=== PATIENT | female | born 1980 | race Two or more races ===

== ENCOUNTER 2016-08-22 04:06 | Emergency (ER) | payer BC ==
[~2016-08-22] VITALS: Ht 170.2 cm; Wt 96.0 kg
[2016-08-22] MEDS ORDERED: BACITRACIN ZINC OINT UDPKT TOP ONE (05:45)
[2016-08-22 06:35] VITALS: BP 148/104
== END 2016-08-22 07:12 | disposition home or self-care (01) ==
LOC: ER 05:51
DX: S01.81XA Laceration without foreign body of other part of head, initial encounter (principal); I10 Essential (primary) hypertension; W19.XXXA Unspecified fall, initial encounter; Y93.89 Activity, other specified; Y92.89 Other specified places as the place of occurrence of the external cause; Y99.8 Other external cause status
CPT/HCPCS: 12011; 81025; 99283; X7700; Z7610

== ENCOUNTER 2017-12-10 23:55 | Emergency (ER) | payer BC ==
[~2017-12-10] VITALS: Ht 170.2 cm; Wt 91.0 kg
[2017-12-11 01:59] VITALS: BP 168/126
[2017-12-11] MEDS ORDERED: OXYMETAZOLINE HCL NASAL SPRAY 15ML BOTHNSTRLS SCH (09:00)
== END 2017-12-11 05:26 | disposition home or self-care (01) ==
LOC: ER 12-11 01:48
DX: R04.0 Epistaxis (principal); I10 Essential (primary) hypertension
CPT/HCPCS: 99282

== ENCOUNTER 2021-08-20 17:22 | Inpatient (IN) | payer BC ==
[~2021-08-20] VITALS: Ht 170.2 cm; Wt 88.5 kg
[2021-08-20] MEDS ORDERED: ACETAMINOPHEN 325MG TABLET PO ONE (18:15)
[2021-08-20] MEDS ORDERED: SODIUM CHLORIDE 0.9% 1,000 ML IV ONE ×2 (18:15→22:15)
[2021-08-20 20:32] LABS: HCG SCREEN NEGATIVE
[2021-08-20 20:35] LABS: CHLORIDE 104 mEq/L (98-107)
[2021-08-20 20:43] LABS: ETHANOL BLOOD < 10 mg/dL
[2021-08-20 20:44] LABS: BASOPHILS % 0.2 % (0.0-2.0); HEMATOCRIT. 28.9 % (36.0-48.0); HEMOGLOBIN. 9.1 g/dL (12.0-16.0); LYMPHOCYTES % 16.2 % (20.0-50.0); MEAN CORPUSCULAR HEMOGLOBIN 22.3 pg (28.0-32.0); MEAN CORPUSCULAR VOLUME 70.8 fL (81.0-99.0); MONOCYTES % 7.9 % (2.0-8.0); NEUTROPHILS % 75.7 % (40.0-76.0); PLATELET 426 x1000/uL (130-400); RED BLOOD CELL COUNT 4.08 mill/uL (4.2-5.4); RED CELL DISTRIBUTION WIDTH 18.9 % (11.6-14.6)
[2021-08-20] MEDS ORDERED: ACETAMINOPHEN 325MG TABLET PO NR (21:02)
[2021-08-20 22:58] LABS: CLARITY URINE CLEAR (CLEAR); COLOR URINE YELLOW (YELLOW); KETONES URINE NEGATIVE (NEGATIVE); LEUKOCYTE ESTERASE URINE NEGATIVE (NEGATIVE); NITRITE URINE POSITIVE (NEGATIVE); OCCULT BLOOD URINE 1+ (NEGATIVE); PH URINE 5.5 (4.5-8.0); PROTEIN URINE NEGATIVE (NEGATIVE); SPECIFIC GRAVITY URINE 1.018 (1.005-1.030); UROBILINOGEN URINE 0.2 E.U./dL (0.2-1.0)
[2021-08-20 23:09] LABS: *AMPHETAMINES SCREEN URINE NEGATIVE (NEGATIVE); *BARBITURATES SCREEN URINE NEGATIVE (NEGATIVE); *BENZODIAZEPINES SCREEN URINE NEGATIVE (NEGATIVE); *COCAINE SCREEN URINE NEGATIVE (NEGATIVE); CANNABINOID URINE SCREEN NEGATIVE (NEGATIVE); METHADONE URINE SCREEN NEGATIVE (NEGATIVE); OPIATES URINE SCREEN NEGATIVE (NEGATIVE); PHENCYCLIDINE URINE SCREEN NEGATIVE (NEGATIVE)
[2021-08-20] MEDS ORDERED: SODIUM CHLORIDE 0.9% 1000ML BAG (SEPSIS BOLUS) IV ONE (23:30)
[2021-08-20] MEDS ORDERED: CEFTRIAXONE 1 G PREMIX 50 ML IV ONE (23:30)
[2021-08-21] VITALS (14 sets, daily range): BP systolic 113–139; BP diastolic 67–90
[2021-08-21] MEDS ORDERED: ONDANSETRON HCL 4MG/2ML INJ IV PRN (09:30)
[2021-08-21] MEDS ORDERED: ACETAMINOPHEN 325MG TABLET PO PRN (09:30)
[2021-08-21] MEDS ORDERED: ENOXAPARIN 40MG/0.4ML SYR SUBCUT SCH (10:00)
[2021-08-21] MEDS: SODIUM CHLORIDE 0.9% 1,000 ML IV SCH ×2 (12:09→17:30)
[2021-08-21] MEDS ORDERED: ASPIRIN 81MG TABLET PO SCH (14:00)
[2021-08-21] MEDS ORDERED: GADOTERATE MEGLUMINE 5 MMOL/10 ML VIAL IV ONE (14:14)
[2021-08-21] MEDS: AMLODIPINE 5MG TABLET PO SCH (14:58)
[2021-08-21] MEDS ORDERED: CEFTRIAXONE 2 G PREMIX 50 ML IV SCH (16:15)
[2021-08-21] MEDS ORDERED: VANCOMYCIN 1500MG in DEXTROSE 5% WATER 250ML IV NR (18:30)
[2021-08-21] MEDS ORDERED: DEXT 5% IV SCH (20:00)
[2021-08-21] MEDS ORDERED: ACYCLOVIR IV SCH (20:00)
[2021-08-21] MEDS ORDERED: WATER IV SCH (20:00)
[2021-08-21] MEDS: ACYCLOVIR IV SCH (20:41)
[2021-08-21] MEDS: DEXT 5% IV SCH (20:41)
[2021-08-21] MEDS: WATER IV SCH (20:41)
[2021-08-21] MEDS: CEFTRIAXONE 2 G in DEXTROSE 5% WATER 50 ML IV SCH (20:41)
[2021-08-21] MEDS ORDERED: MORPHINE SULFATE 2 MG/ML CPJ (NOT FOR IM USE) IV PRN (21:00)
[2021-08-21] MEDS ORDERED: DEXAMETHASONE 10 MG/ML VIAL IV SCH (21:00)
[2021-08-21] MEDS ORDERED: DEXAMETHASONE 10 MG/ML VIAL IV NR (21:00)
[2021-08-21 21:42] LABS: T4 FREE 0.91 ng/dL (0.76-1.46)
[2021-08-21 21:44] LABS: CREATINE KINASE 79 IU/L (26-192); CREATINE KINASE MB FRACTION < 1.0 ng/mL (0.5-3.6)
[2021-08-21] MEDS: FAMOTIDINE 20MG/2ML VIAL IV SCH (21:44)
[2021-08-22] VITALS (46 sets, daily range): BP systolic 103–143; BP diastolic 43–106
[2021-08-22 00:25] LABS: CREATINE KINASE 78 IU/L (26-192); CREATINE KINASE MB FRACTION < 1.0 ng/mL (0.5-3.6)
[2021-08-22] MEDS: DEXAMETHASONE 4MG/ML 1ML VIAL IV SCH ×4 (00:50→17:08)
[2021-08-22 01:18] LABS: CLARITY URINE CLEAR (CLEAR); COLOR URINE YELLOW (YELLOW); KETONES URINE 2+ (NEGATIVE); LEUKOCYTE ESTERASE URINE NEGATIVE (NEGATIVE); NITRITE URINE POSITIVE (NEGATIVE); OCCULT BLOOD URINE NEGATIVE (NEGATIVE); PH URINE 6.5 (4.5-8.0); PROTEIN URINE NEGATIVE (NEGATIVE); SPECIFIC GRAVITY URINE 1.019 (1.005-1.030); UROBILINOGEN URINE 0.2 E.U./dL (0.2-1.0)
[2021-08-22] MEDS: VANCOMYCIN 750MG PREMIX 150 ML IV SCH ×3 (01:54→18:09)
[2021-08-22] MEDS ORDERED: VANCOMYCIN 750 MG in DEXT 5% WATER 250 ML IV SCH (02:00)
[2021-08-22] MEDS: WATER IV SCH ×3 (03:33→19:48)
[2021-08-22] MEDS: DEXT 5% IV SCH ×3 (03:33→19:48)
[2021-08-22] MEDS: ACYCLOVIR IV SCH ×3 (03:33→19:48)
[2021-08-22] MEDS: CEFTRIAXONE 2 G in DEXTROSE 5% WATER 50 ML IV SCH ×2 (05:31→17:05)
[2021-08-22] MEDS: SODIUM CHLORIDE 0.9% 1,000 ML IV SCH ×3 (05:31→19:00)
[2021-08-22 06:55] LABS: VITAMIN B12 SERUM 1314 pg/mL (211-911)
[2021-08-22] MEDS: AMLODIPINE 5MG TABLET PO SCH (09:16)
[2021-08-22] MEDS: FAMOTIDINE 20MG/2ML VIAL IV SCH ×2 (09:45→21:56)
[2021-08-22 10:13] LABS: HEMATOCRIT. 28.8 % (36.0-48.0); HEMOGLOBIN. 8.9 g/dL (12.0-16.0); MEAN CORPUSCULAR VOLUME 71.2 fL (81.0-99.0); MEAN PLATELET VOLUME 8.5 fl (7.4-10.4); PLATELET 445 x1000/uL (130-400); RED BLOOD CELL COUNT 4.05 mill/uL (4.2-5.4); RED CELL DISTRIBUTION WIDTH 18.4 % (11.6-14.6)
[2021-08-22 10:18] LABS: CHLORIDE 105 mEq/L (98-107)
[2021-08-22 13:03] LABS: PLATELET ESTIMATE INCREASED
[2021-08-23] VITALS (45 sets, daily range): BP systolic 109–166; BP diastolic 59–129
[2021-08-23] MEDS: DEXAMETHASONE 4MG/ML 1ML VIAL IV SCH ×3 (00:56→12:09)
[2021-08-23] MEDS: SODIUM CHLORIDE 0.9% 1,000 ML IV SCH ×4 (00:56→18:07)
[2021-08-23 01:12] LABS: CHLORIDE 110 mEq/L (98-107)
[2021-08-23] MEDS: VANCOMYCIN 750MG PREMIX 150 ML IV SCH ×2 (02:56→12:09)
[2021-08-23] MEDS: WATER IV SCH ×3 (03:57→19:30)
[2021-08-23] MEDS: ACYCLOVIR IV SCH ×3 (03:57→19:30)
[2021-08-23] MEDS: DEXT 5% IV SCH ×3 (03:57→19:30)
[2021-08-23] MEDS: CEFTRIAXONE 2 G in DEXTROSE 5% WATER 50 ML IV SCH ×2 (06:21→18:09)
[2021-08-23 08:08] LABS: HIV SCREEN 4G Non Reactive (Non Reactive)
[2021-08-23] MEDS: AMLODIPINE 5MG TABLET PO SCH (09:00)
[2021-08-23] MEDS: FAMOTIDINE 20MG/2ML VIAL IV SCH ×2 (09:00→22:04)
[2021-08-23 10:44] LABS: BASOPHILS % 0.2 % (0.0-2.0); HEMATOCRIT. 31.5 % (36.0-48.0); HEMOGLOBIN. 9.7 g/dL (12.0-16.0); LYMPHOCYTES % 9.3 % (20.0-50.0); MEAN CORPUSCULAR HEMOGLOBIN 21.6 pg (28.0-32.0); MEAN CORPUSCULAR VOLUME 70.5 fL (81.0-99.0); MEAN PLATELET VOLUME 8.3 fl (7.4-10.4); MONOCYTES % 5.4 % (2.0-8.0); NEUTROPHILS % 85.1 % (40.0-76.0); PLATELET 485 x1000/uL (130-400); RED BLOOD CELL COUNT 4.48 mill/uL (4.2-5.4); RED CELL DISTRIBUTION WIDTH 18.2 % (11.6-14.6)
[2021-08-23] MEDS ORDERED: NALOXONE HCL 0.4MG/ML VIAL IV PRN (13:30)
[2021-08-23] MEDS ORDERED: METHYLPREDNISOLONE SOD SUCC 125 MG/2 ML VIAL IV SCH (14:45)
[2021-08-23] MEDS ORDERED: GADOTERATE MEGLUMINE 5 MMOL/10 ML VIAL IV ONE (15:47)
[2021-08-23] MEDS: METHYLPREDNISOLONE 500 MG in D5W 100 ML IV SCH (17:52)
[2021-08-23] MEDS: VANCOMYCIN 750 MG in DEXT 5% WATER 250 ML IV SCH (22:04)
[2021-08-24] VITALS (36 sets, daily range): BP systolic 111–147; BP diastolic 42–102
[2021-08-24] MEDS: SODIUM CHLORIDE 0.9% 1,000 ML IV SCH ×2 (02:00→20:42)
[2021-08-24] MEDS: ACYCLOVIR IV SCH ×3 (02:40→21:03)
[2021-08-24] MEDS: DEXT 5% IV SCH ×3 (02:40→21:03)
[2021-08-24] MEDS: WATER IV SCH ×3 (02:40→21:03)
[2021-08-24] MEDS: VANCOMYCIN 750 MG in DEXT 5% WATER 250 ML IV SCH ×3 (05:30→21:04)
[2021-08-24 05:49] LABS: HEMATOCRIT. 29.9 % (36.0-48.0); MEAN CORPUSCULAR HEMOGLOBIN 21.8 pg (28.0-32.0); MEAN CORPUSCULAR VOLUME 72.3 fL (81.0-99.0); RED BLOOD CELL COUNT 4.14 mill/uL (4.2-5.4); RED CELL DISTRIBUTION WIDTH 18.4 % (11.6-14.6)
[2021-08-24 06:04] LABS: CHLORIDE 109 mEq/L (98-107)
[2021-08-24] MEDS: CEFTRIAXONE 2 G in DEXTROSE 5% WATER 50 ML IV SCH ×2 (06:28→17:10)
[2021-08-24 07:31] LABS: PLATELET 413 x1000/uL (130-400)
[2021-08-24 07:36] LABS: PLATELET ESTIMATE SLIGHTLY INCREASED
[2021-08-24] MEDS: METHYLPREDNISOLONE 500 MG in D5W 100 ML IV SCH ×2 (09:00→17:35)
[2021-08-24] MEDS: AMLODIPINE 5MG TABLET PO SCH (09:12)
[2021-08-24] MEDS: FAMOTIDINE 20MG/2ML VIAL IV SCH ×2 (11:17→21:03)
[2021-08-24] MEDS ORDERED: BISACODYL 5MG TABLET PO PRN (15:00)
[2021-08-24] MEDS: DOCUSATE SODIUM 100MG CAPSULE PO SCH (17:10)
[2021-08-24] MEDS ORDERED: LACTULOSE 20G/30ML UDC PO PRN (21:00)
[2021-08-25] VITALS (13 sets, daily range): BP systolic 106–149; BP diastolic 66–97
[2021-08-25] MEDS: WATER IV SCH ×3 (03:06→19:58)
[2021-08-25] MEDS: ACYCLOVIR IV SCH ×3 (03:06→19:58)
[2021-08-25] MEDS: DEXT 5% IV SCH ×3 (03:06→19:58)
[2021-08-25] MEDS: CEFTRIAXONE 2 G in DEXTROSE 5% WATER 50 ML IV SCH ×2 (04:55→18:10)
[2021-08-25] MEDS: VANCOMYCIN 750 MG in DEXT 5% WATER 250 ML IV SCH ×3 (06:02→22:08)
[2021-08-25] MEDS ORDERED: IOHEXOL-350 100 ML BOTTLE ONE (07:17)
[2021-08-25] MEDS: METHYLPREDNISOLONE 500 MG in D5W 100 ML IV SCH ×2 (08:20→16:55)
[2021-08-25] MEDS: FAMOTIDINE 20MG/2ML VIAL IV SCH (08:22)
[2021-08-25] MEDS: AMLODIPINE 5MG TABLET PO SCH (08:22)
[2021-08-25] MEDS: DOCUSATE SODIUM 100MG CAPSULE PO SCH ×2 (08:22→16:56)
[2021-08-25] MEDS: SODIUM CHLORIDE 0.9% 1,000 ML IV SCH ×2 (11:05→23:36)
[2021-08-25] MEDS ORDERED: BISACODYL 5MG TABLET PO PRN (18:00)
[2021-08-25] MEDS ORDERED: ALPRAZOLAM 0.5 MG TABLET PO PRN (18:00)
[2021-08-25] MEDS: FAMOTIDINE 20MG TABLET PO SCH (22:08)
[2021-08-26] VITALS (11 sets, daily range): BP systolic 120–156; BP diastolic 69–97
[2021-08-26 06:44] LABS: BASOPHILS % 0.1 % (0.0-2.0); HEMATOCRIT. 28.1 % (36.0-48.0); HEMOGLOBIN. 8.6 g/dL (12.0-16.0); LYMPHOCYTES % 8.8 % (20.0-50.0); MEAN CORPUSCULAR HEMOGLOBIN 22.2 pg (28.0-32.0); MEAN PLATELET VOLUME 8.3 fl (7.4-10.4); MONOCYTES % 3.5 % (2.0-8.0); NEUTROPHILS % 87.6 % (40.0-76.0); PLATELET 459 x1000/uL (130-400); RED CELL DISTRIBUTION WIDTH 18.8 % (11.6-14.6)
[2021-08-26 07:04] LABS: CHLORIDE 110 mEq/L (98-107)
[2021-08-26] MEDS: DOCUSATE SODIUM 100MG CAPSULE PO SCH ×2 (09:28→17:00)
[2021-08-26] MEDS: FAMOTIDINE 20MG TABLET PO SCH ×2 (09:29→21:25)
[2021-08-26] MEDS: AMLODIPINE 5MG TABLET PO SCH (09:29)
[2021-08-26] MEDS: METHYLPREDNISOLONE 500 MG in D5W 100 ML IV SCH ×2 (09:31→17:20)
[2021-08-26] MEDS: SODIUM CHLORIDE 0.9% 1,000 ML IV SCH (13:35)
[2021-08-27] VITALS (12 sets, daily range): BP systolic 107–154; BP diastolic 64–108
[2021-08-27] MEDS: SODIUM CHLORIDE 0.9% 1,000 ML IV SCH ×2 (02:00→17:36)
[2021-08-27 05:24] LABS: BASOPHILS % 0.1 % (0.0-2.0); HEMATOCRIT. 27.6 % (36.0-48.0); HEMOGLOBIN. 8.6 g/dL (12.0-16.0); MEAN CORPUSCULAR HEMOGLOBIN 22.3 pg (28.0-32.0); MEAN CORPUSCULAR VOLUME 71.5 fL (81.0-99.0); MEAN PLATELET VOLUME 8.2 fl (7.4-10.4); MONOCYTES % 2.1 % (2.0-8.0); NEUTROPHILS % 89.8 % (40.0-76.0); PLATELET 387 x1000/uL (130-400); RED BLOOD CELL COUNT 3.86 mill/uL (4.2-5.4); RED CELL DISTRIBUTION WIDTH 18.8 % (11.6-14.6)
[2021-08-27 06:29] LABS: CHLORIDE 110 mEq/L (98-107)
[2021-08-27] MEDS: FAMOTIDINE 20MG TABLET PO SCH ×2 (08:47→21:21)
[2021-08-27] MEDS: AMLODIPINE 5MG TABLET PO SCH ×2 (08:47→17:35)
[2021-08-27] MEDS: DOCUSATE SODIUM 100MG CAPSULE PO SCH ×2 (08:47→17:35)
[2021-08-27] MEDS: METHYLPREDNISOLONE 500 MG in D5W 100 ML IV SCH ×2 (08:47→17:35)
[2021-08-27 13:06] LABS: ANTI-MYELOPEROXIDASE AB < 9.0 U/mL (0.0-9.0); ANTI-PROTEINASE 3 ABS < 3.5 U/mL (0.0-3.5)
[2021-08-28] VITALS (12 sets, daily range): BP systolic 95–147; BP diastolic 59–93
[2021-08-28] MEDS: SODIUM CHLORIDE 0.9% 1,000 ML IV SCH ×2 (04:42→17:12)
[2021-08-28 06:12] LABS: HEMATOCRIT. 30.4 % (36.0-48.0); HEMOGLOBIN. 9.6 g/dL (12.0-16.0); MEAN CORPUSCULAR VOLUME 72.9 fL (81.0-99.0); MEAN PLATELET VOLUME 8.6 fl (7.4-10.4); PLATELET 408 x1000/uL (130-400); RED BLOOD CELL COUNT 4.17 mill/uL (4.2-5.4)
[2021-08-28 06:28] LABS: CHLORIDE 109 mEq/L (98-107)
[2021-08-28] MEDS: AMLODIPINE 5MG TABLET PO SCH ×2 (08:57→16:33)
[2021-08-28] MEDS: DOCUSATE SODIUM 100MG CAPSULE PO SCH ×2 (08:57→16:33)
[2021-08-28] MEDS: FAMOTIDINE 20MG TABLET PO SCH ×2 (08:58→20:46)
[2021-08-28 14:08] LABS: ATYPICAL P-ANCA <1:20 titer (Neg:<1:20); CYTOPLASMIC C-ANCA <1:20 titer (Neg:<1:20); PERINUCLEAR P-ANCA <1:20 titer (Neg:<1:20)
[2021-08-29] VITALS (12 sets, daily range): BP systolic 97–144; BP diastolic 54–92
[2021-08-29] MEDS: SODIUM CHLORIDE 0.9% 1,000 ML IV SCH ×2 (06:40→20:42)
[2021-08-29 06:50] LABS: CHLORIDE 104 mEq/L (98-107)
[2021-08-29 08:31] LABS: PLATELET ESTIMATE SLIGHTLY INCREASED
[2021-08-29] MEDS: FAMOTIDINE 20MG TABLET PO SCH ×2 (09:00→21:04)
[2021-08-29] MEDS: DOCUSATE SODIUM 100MG CAPSULE PO SCH ×2 (09:00→17:00)
[2021-08-29] MEDS: AMLODIPINE 5MG TABLET PO SCH ×2 (12:12→17:25)
[2021-08-29] MEDS: PREDNISONE 20MG TABLET PO SCH (17:25)
[2021-08-30] VITALS (10 sets, daily range): BP systolic 90–134; BP diastolic 57–87
[2021-08-30] MEDS: FAMOTIDINE 20MG TABLET PO SCH ×2 (09:43→22:18)
[2021-08-30] MEDS: PREDNISONE 20MG TABLET PO SCH ×2 (09:46→17:32)
[2021-08-30] MEDS: AMLODIPINE 5MG TABLET PO SCH ×2 (09:47→17:33)
[2021-08-30] MEDS: DOCUSATE SODIUM 100MG CAPSULE PO SCH ×2 (09:47→17:00)
[2021-09-01] MEDS ORDERED: PREDNISONE 10MG TABLET PO SCH (17:00)
[2021-09-04] MEDS ORDERED: PREDNISONE 10MG TABLET PO SCH (17:00)
[2021-09-07] MEDS ORDERED: PREDNISONE 10MG TABLET PO SCH (17:00)
== END 2021-08-30 22:45 | disposition short-term general hospital (02) | DRG 871 ==
LOC: ER 17:22 → MICUSO 08-21 02:16 → 6EST 08-21 09:32 → 6WST 08-21 11:11 → MICUSO 08-21 17:23 → 5EST 08-24 17:18
PROVIDERS: ADMIT Internal Medicine; ATTEND Internal Medicine
PROC: 4A00X4Z Measurement of Central Nervous Electrical Activity, External Approach (ICD-10-PCS; principal; 2021-08-22)
DX: A41.9 Sepsis, unspecified organism (principal); G04.00 Acute disseminated encephalitis and encephalomyelitis, unspecified; G93.6 Cerebral edema; I63.9 Cerebral infarction, unspecified; K85.90 Acute pancreatitis without necrosis or infection, unspecified; N39.0 Urinary tract infection, site not specified; G81.94 Hemiplegia, unspecified affecting left nondominant side; I10 Essential (primary) hypertension; D50.9 Iron deficiency anemia, unspecified; E87.6 Hypokalemia; Z20.822 Contact with and (suspected) exposure to COVID-19
CPT/HCPCS: 36415; 70496; 70553; 71045; 72156; 73070; 80048; 80053; 80061; 80202; 80305; 80320; 81003; 82550; 82553; 82607; 83036; 83520; 83540; 83550; 83605; 84145; 84439; 84443; 84484; 84703; 85025; 85044; 85379; 86038; 86140; 86225; 86256; 86592; 87389; 87426; 92610; 93005; 93306; 93880; 93970; 95816; 97110; 97112; 97162; 97166; 97530; 97535; 99285; A9577; J0133; J0696; J1100; J1650; J2270; J2930; J3370; J3490; J7030; J7060; J7512; Q9967; U0003; U0005; G0480